=== PATIENT | female | born 1970 | race Two or more races ===

== ENCOUNTER 2017-08-12 09:53 | Inpatient (IN) | payer OTHER ==
[2017-08-12 10:28] VITALS: BMI 19.2
--- NOTE | 2017-08-12 13:11 | HP ---
CIWA Score - CIWA Score Nausea/Vomitin-No Nausea/No Vomiting Muscle Tremors: 4-Moderate,w/Arms Extend Anxiety: 4-Mod. Anxious/Guarded Agitation: 4-Moderately Restless Paroxysmal Sweats: 3 Orientation: 0-Oriented Tacttile Disturbances: 0-None Auditory Disturbances: 0-None Visual Disturbances: 1-Very Mild Sensitivity Headache: 1-Very Mild CIWA-Ar Total Score: 17 Admission ROS [facility] - HPI Chief Complaint: I am here to get off the xanax. Allergies/Adverse Reactions: Allergies Allergy/AdvReac Type Severity Reaction Status Date / Time No Known Allergies Allergy Verified 08/12/17 13:01 History of Present Illness: pt is a 47yr old female with a history of benzodiazapine dependence seeking detox for treatment. Exam Limitations: No Limitations - Ebola screening Have you traveled outside of the country in the last 21 days: No Have you had contact with anyone from an Ebola affected area: No Have you been sick,other than usual withdrawal symptoms: No Do you have a fever: No - Review of Systems Constitutional: Chills, Diaphoresis, Loss of Appetite, Night Sweats, Changes in sleep, Unintentional Wgt. Loss EENT: reports: Tearing, Nose Congestion Respiratory: reports: No Symptoms reported Cardiac: reports: No Symptoms Reported GI: reports: Poor Appetite, Poor Fluid Intake : reports: No Symptoms Reported Musculoskeletal: reports: No Symptoms Reported Integumentary: reports: Flushing Neuro: reports: Tingling, Tremors Endocrine: reports: Excessive Sweating, Flushing, Intolerance to Cold, Intolerance to Heat Hematology: reports: No Symptoms Reported Psychiatric: reports: Judgement Intact, Mood/Affect Appropiate, Orientated x3, Agitated, Anxious Other Systems: Reviewed and Negative Patient History - Patient Medical History Hx Anemia: No Hx Asthma: No Hx Chronic Obstructive Pulmonary Disease (COPD): Yes Hx Cancer: No Hx Cardiac Disorders: No Hx Congestive Heart Failure: No Hx Hypertension: Yes Hx Hypercholesterolemia: No Hx Pacemaker: No HX Cerebrovascular Accident: No Hx Seizures: No Hx Dementia: No Hx Diabetes: No Hx Gastrointestinal Disorders: No Hx Liver Disease: No Hx Genitourinary Disorders: No Hx Sexually Transmitted Disorders: No Hx Renal Disease (ESRD): No Hx Thyroid Disease: No Hx Human Immunodeficiency Virus (HIV): No (negative) Hx Hepatitis C: No (negative) Hx Depression: Yes Hx Suicide Attempt: No Hx Bipolar Disorder: No Hx Schizophrenia: No Other Medical History: anxiety - Patient Surgical History Past Surgical History: No - PPD History Previous Implant?: Yes Documented Results: Negative w/o proof Implanted On Prior [facility] Admission?: No PPD to be Administered?: Yes - Reproductive History Last Menstrual Period: 07/21/17 Patient : No - Smoking Cessation Smoking history: Current every day smoker Have you smoked in the past 12 months: Yes Aproximately how many cigarettes per day: 30 Hx Chewing Tobacco Use: No Initiated information on smoking cessation: Yes 'Breaking Loose' booklet given: 08/12/17 - Substance & Tx. History Hx Alcohol Use: No Hx Substance Use: Yes Substance Use Type: Tranquilizers Hx Substance Use Treatment: No - Substances Abused Alprazolam (Xanax) Route: Oral Frequency: Daily Amount used: 4-5mg Age of first use: 47 Date of Last Use: 08/12/17 Family Disease History - Family Disease History Family Disease History: Diabetes: Mother, Brother, Other: Father ( dementia 09/2016) Admission Physical Exam S - Vital Signs Vital Signs: Vital Signs - 24 hr 08/12/17 10:25 Temperature 97.3 F L Pulse Rate 80 Respiratory 18 Rate Blood Pressure 106/75 - Physical General Appearance: Yes: Appropriately Dressed, Thin, Tremorous, Irritable, Sweating, Anxious HEENTM: Yes: Hearing grossly Normal, Normal Voice, Nasal Congestion, Rhinorrhea Respiratory: Yes: Lungs Clear, Normal Breath Sounds, No Respiratory Distress Neck: Yes: No masses,lesions,Nodules Breast: Yes: Within Normal Limits, Axillae without masses, No masses Cardiology: Yes: Regular Rhythm, Regular Rate, S1, S2 Abdominal: Yes: Normal Bowel Sounds, Non Tender, Soft Genitourinary: Yes: Within Normal Limits Back: Yes: Normal Inspection Musculoskeletal: Yes: full range of Motion, Gait Steady Extremities: Yes: Normal Capillary Refill, Normal Inspection, Non-Tender, Tremors Neurological: Yes: Fully Oriented, Alert, Normal Response Integumentary: Yes: Normal Color, Diaphoresis Lymphatic: Yes: Within Normal Limits - Diagnostic (1) Sedative, hypnotic or anxiolytic dependence with withdrawal, uncomplicated Current Visit: Yes Status: Chronic (2) Nicotine dependence Current Visit: Yes Status: Chronic Qualifiers: Nicotine product type: cigarettes Substance use status: uncomplicated Qualified Code(s): F17.210 - Nicotine dependence, cigarettes, uncomplicated (3) Hypertension Current Visit: Yes Status: Chronic Qualifiers: Hypertension type: essential hypertension Qualified Code(s): I10 - Essential (primary) hypertension (4) Dystonia Current Visit: Yes Status: Chronic (5) COPD (chronic obstructive pulmonary disease) Current Visit: Yes Status: Chronic Qualifiers: Emphysema type: unspecified Cleared for Admission BHS - Detox or Rehab S Level of Care: Medically Managed Detox Regimen/Protocol: Valium S Breath Alcohol Content Breath Alcohol Content: 0 Urine Pregancy Test - Result Urine Test Results: Negative- NO Line Present Urine Drug Screen - Results Drug Screen Negative: No Urine Drug Screen Results: BZO-Benzodiazepines
[2017-08-12] MEDS ORDERED: MAG HYDROX/AL HYDROX/SIMETH 30 ML UNIT-DOSE CUP PO PRN (13:14)
[2017-08-12] MEDS ORDERED: MENTHOL/PHENOL 1 EACH UD MM PRN (13:14)
[2017-08-12] MEDS ORDERED: ACETAMINOPHEN 325 MG TABLET (FP) PO PRN (13:14)
[2017-08-12] MEDS ORDERED: MAGNESIUM HYDROX 2400MG/30ML ORAL SUSPENSION 30 ML CUP PO PRN (13:14)
[2017-08-12] MEDS ORDERED: guaiFENesin/D-METHORPHAN HB 10 ML UNIT-DOSE CUPS PO PRN (13:14)
[2017-08-12] MEDS ORDERED: LOPERAMIDE HCL 2 MG CAPSULE PO PRN (13:14)
[2017-08-12] MEDS ORDERED: IBUPROFEN 400 MG TABLET (FP) PO PRN (13:14)
[2017-08-12] MEDS ORDERED: MAGNESIUM CITRATE 300 ML BOTTLE PO PRN (13:14)
[2017-08-12] MEDS ORDERED: diazePAM 5 MG TABLET PO ONE (13:34)
[2017-08-12] MEDS: diazePAM 5 MG TABLET PO SCH ×2 (14:32→22:20)
--- NOTE | 2017-08-12 15:23 | CONSULT ---
[facility] Psychiatric Consult - Data Date of interview: 08/12/17 Admission source: [facility] Identifying data: This is 47 years old female with no psychiatric hospitalization history intoxicated with: Xanax and Nicotine Substance Abuse History: Smoking Cessation. Smoking history: Current every day smoker. Have you smoked in the past 12 months: Yes. Aproximately how many cigarettes per day: 30. Hx Chewing Tobacco Use: No. Initiated information on smoking cessation: Yes. 'Breaking Loose' booklet given: 08/12/17. - Substance & Tx. History. Hx Alcohol Use: No. Hx Substance Use: Yes. Substance Use Type : Tranquilizers. Hx Substance Use Treatment: No. - Substances Abused. Alprazolam (Xanax). Route: Oral. Frequency: Daily. Amount used: 4-5mg. Age of first use: 47. Date of Last Use: 08/12/17 Medical History: HTN, COPD Psychiatric History: Patient reports anxiety and panic attachs, reports takijgn prior to admission: Remeron 15mg po qhs. Trazodone 150mg pom qhs. Seroquel 100mg po qhs Physical/Sexual Abuse/Trauma History: Unclear Additional Comment: Remeron 15mg po qhs. Trazodone 150mg pom qhs. Seroquel 100mg po qhs Mental Status Exam - Mental Status Exam Alert and Oriented to: Person Cognitive Function: Fair Patient Appearance: Unkempt Mood: Anxious Affect: Mood Congruent Patient Behavior: Cooperative Speech Pattern: Excessive Voice Loudness: Mildly Loud Thought Process: Circumstantial, Goal Oriented Thought Disorder: Being Controlled Hallucinations: Denies Suicidal Ideation: Denies Homicidal Ideation: Denies Insight/Judgement: Fair Sleep: Difficulty falling asleep Appetite: Weight loss Muscle strength/Tone: Mild Hypotonicity Gait/Station: Normal Additional Comments: Remeron 15mg po qhs. Trazodone 150mg pom qhs. Seroquel 100mg po qhs Psychiatric Findings - Problem List ([place] 1, 2,3) (1) Drug-induced mood disorder Current Visit: Yes Status: Acute (2) Nicotine dependence Current Visit: Yes Status: Chronic Qualifiers: Nicotine product type: cigarettes Substance use status: uncomplicated Qualified Code(s): F17.210 - Nicotine dependence, cigarettes, uncomplicated (3) Sedative, hypnotic or anxiolytic dependence with withdrawal, uncomplicated Current Visit: Yes Status: Chronic - Initial Treatment Plan Initial Treatment Plan: Remeron 15mg po qhs. Trazodone 150mg pom qhs. Seroquel 100mg po qhs
[2017-08-12] MEDS: P-EPHED 60MG/TRIPROLIDI 2.5MG TABLET PO PRN (16:35)
[2017-08-12] MEDS: hydrOXYzine PAMOATE 50 MG CAPSULE (FP) PO PRN (16:35)
[2017-08-12] MEDS: NICOTINE POLACRILEX 4 MG GUM BUC PRN (18:16)
[2017-08-12] MEDS: diazePAM 5 MG TABLET PO PRN (18:34)
[2017-08-12] MEDS: MIRTAZAPINE 15 MG TABLET (FP) PO SCH (22:19)
[2017-08-12] MEDS: traZODone HCL 50 MG TABLET (FP) PO SCH (22:19)
[2017-08-12] MEDS: THIAMINE HCL 100 MG TABLET (FP) PO SCH (22:19)
[2017-08-12] MEDS: QUEtiapine FUMARATE 100 MG TABLET (FP) PO SCH (22:19)
[2017-08-12] MEDS: PROPRANOLOL HCL 10 MG TABLET (FP) PO SCH (22:20)
[2017-08-12] MEDS: BACLOFEN 10 MG TABLET (FP) PO SCH (22:20)
[2017-08-12 23:32] LABS: URINE APPEARANCE CLEAR; URINE BILIRUBIN NEGATIVE (NEGATIVE); URINE BLOOD NEGATIVE (NEGATIVE); URINE COLOR STRAW; URINE GLUCOSE (UA) NEGATIVE (NEGATIVE); URINE KETONE NEGATIVE (NEGATIVE); URINE NITRITE NEGATIVE (NEGATIVE); URINE PROTEIN NEGATIVE (NEGATIVE); URINE UROBILINOGEN NEGATIVE mg/dL (0.2-1.0)
[2017-08-12 23:56] LABS: URINE LEUK ESTERASE 1+ (NEGATIVE)
[2017-08-13 00:17] LABS: EPI CELLS FEW /HPF (FEW); URINE BACTERIA MANY /hpf (NONE SEEN); URINE MUCUS FEW
[2017-08-13] MEDS: diazePAM 5 MG TABLET PO PRN ×3 (03:17→17:24)
[2017-08-13] MEDS: diazePAM 5 MG TABLET PO SCH ×3 (06:52→22:31)
[2017-08-13] MEDS: PROPRANOLOL HCL 10 MG TABLET (FP) PO SCH ×3 (06:53→22:32)
[2017-08-13 10:02] LABS: HEMATOCRIT 39.8 % (32.4-45.2); HEMOGLOBIN 12.6 GM/dL (10.7-15.3); MCH 27.9 pg (25.7-33.7); MCHC 31.8 g/dl (32.0-36.0); MEAN CELL VOLUME 87.7 fl (80-96); MEAN PLT VOLUME 9.8 fl (7.5-11.1); PLATELET COUNT 254 K/MM3 (134-434); RBC 4.53 M/mm3 (3.60-5.2); RDW 13.9 % (11.6-15.6); WHITE BLOOD COUNT 6.9 K/mm3 (4.0-10.0)
[2017-08-13 10:18] LABS: ALBUMIN 4.3 g/dl (3.4-5.0); ANION GAP 8 (8-16); BLOOD UREA NITROGEN 12 mg/dL (7-18); CALCIUM 9.5 mg/dL (8.5-10.1); CHLORIDE 102 mmol/L (98-107); CO2 29 mmol/L (21-32); GLUCOSE,RANDOM 96 mg/dL (74-106); POTASSIUM 4.3 mmol/L (3.5-5.1); SODIUM 139 mmol/L (136-145)
[2017-08-13 10:21] LABS: ALK PHOS 44 U/L (45-117); BILIRUBIN,TOTAL 0.3 mg/dL (0.2-1.0); CREATININE 0.7 mg/dL (0.55-1.02); SGOT/AST 16 U/L (15-37); SGPT/ALT 16 U/L (12-78); TOT PROT 7.4 g/dl (6.4-8.2)
[2017-08-13] MEDS: P-EPHED 60MG/TRIPROLIDI 2.5MG TABLET PO PRN (10:53)
[2017-08-13] MEDS: NICOTINE 21 MG/24 HOURS TOPICAL PATCH TD SCH (11:16)
[2017-08-13] MEDS: PRENATAL VITAMINS W/ FOLIC ACID TABLET (FP) PO SCH (11:16)
[2017-08-13] MEDS: hydrOXYzine PAMOATE 50 MG CAPSULE (FP) PO PRN ×2 (13:04→17:23)
--- NOTE | 2017-08-13 14:46 | PN ---
S CIWA - CIWA Score Nausea/Vomitin-No Nausea/No Vomiting Muscle Tremors: 4-Moderate,w/Arms Extend Anxiety: 4-Mod. Anxious/Guarded Agitation: 4-Moderately Restless Paroxysmal Sweats: 3 Orientation: 0-Oriented Tacttile Disturbances: 0-None Auditory Disturbances: 0-None Visual Disturbances: 0-None Headache: 1-Very Mild CIWA-Ar Total Score: 16 BHS Progress Note (SOAP) Subjective: tearing sweats chills interrupted sleep irritable I need my fixodent for my dentures I brought in my own sealed powder fixodent. Objective: 08/13/17 14:43 Vital Signs Temperature 98.0 F 08/13/17 14:12 Pulse Rate 95 H 08/13/17 14:12 Respiratory Rate 16 08/13/17 14:12 Blood Pressure 99/67 08/13/17 14:12 O2 Sat by Pulse Oximetry (%) Laboratory Tests 08/12/17 08/12/17 08/13/17 12:00 21:00 05:45 WBC 6.9 RBC 4.53 Hgb 12.6 Hct 39.8 MCV 87.7 MCH 27.9 MCHC 31.8 L RDW 13.9 Plt Count 254 MPV 9.8 Sodium Potassium Chloride Carbon Dioxide Anion Gap BUN Creatinine Creat Clearance w eGFR Random Glucose Calcium Total Bilirubin AST ALT Alkaline Phosphatase Total Protein Albumin Urine Color Straw Urine Appearance Clear Urine pH 6.0 Ur Specific [place] 1.008 Urine Protein Negative Urine Glucose (UA) Negative Urine Ketones Negative Urine Blood Negative Urine Nitrite Negative Urine Bilirubin Negative Urine Urobilinogen Negative Ur Leukocyte Esterase 1+ H Urine WBC (Auto) 1 Urine RBC (Auto) 1 Ur Epithelial Cells Few Urine Bacteria Many Urine Mucus Few RPR Titer HIV 1&2 Antibody Screen Negative HIV P24 Antigen Negative 08/13/17 08/13/17 05:45 05:45 WBC RBC Hgb Hct MCV MCH MCHC RDW Plt Count MPV Sodium 139 Potassium 4.3 Chloride 102 Carbon Dioxide 29 Anion Gap 8 BUN 12 Creatinine 0.7 Creat Clearance w eGFR > 60 Random Glucose 96 Calcium 9.5 Total Bilirubin 0.3 AST 16 ALT 16 Alkaline Phosphatase 44 L Total Protein 7.4 Albumin 4.3 Urine Color Urine Appearance Urine pH Ur Specific [place] Urine Protein Urine Glucose (UA) Urine Ketones Urine Blood Urine Nitrite Urine Bilirubin Urine Urobilinogen Ur Leukocyte Esterase Urine WBC (Auto) Urine RBC (Auto) Ur Epithelial Cells Urine Bacteria Urine Mucus RPR Titer Nonreactive HIV 1&2 Antibody Screen HIV P24 Antigen aaox3 ambulating no acute distress ordered for pt to use her own fixodent (powder form to mix with water) for her dentures. pt will need to ask her nurse to receive her fixodent twice a day. Assessment: 08/13/17 14:45 withdrawal sx Plan: continue detox increase fluids
[2017-08-13] MEDS: MIRTAZAPINE 15 MG TABLET (FP) PO SCH (22:31)
[2017-08-13] MEDS: THIAMINE HCL 100 MG TABLET (FP) PO SCH (22:31)
[2017-08-13] MEDS: QUEtiapine FUMARATE 100 MG TABLET (FP) PO SCH (22:31)
[2017-08-13] MEDS: traZODone HCL 50 MG TABLET (FP) PO SCH (22:31)
[2017-08-13] MEDS: BACLOFEN 10 MG TABLET (FP) PO SCH (22:32)
[2017-08-14] MEDS: hydrOXYzine PAMOATE 50 MG CAPSULE (FP) PO PRN ×2 (04:23→13:24)
[2017-08-14] MEDS: PROPRANOLOL HCL 10 MG TABLET (FP) PO SCH ×3 (07:32→22:50)
[2017-08-14] MEDS: diazePAM 5 MG TABLET PO PRN ×2 (07:33→17:58)
[2017-08-14] MEDS: PRENATAL VITAMINS W/ FOLIC ACID TABLET (FP) PO SCH (11:14)
[2017-08-14] MEDS: diazePAM 5 MG TABLET PO SCH ×2 (11:14→22:50)
[2017-08-14] MEDS: NICOTINE 21 MG/24 HOURS TOPICAL PATCH TD SCH (11:15)
--- NOTE | 2017-08-14 15:09 | PN ---
S CIWA - CIWA Score Nausea/Vomitin Muscle Tremors: 3 Anxiety: 3 Agitation: 4-Moderately Restless Paroxysmal Sweats: 3 Orientation: 0-Oriented Tacttile Disturbances: 0-None Auditory Disturbances: 0-None Visual Disturbances: 0-None Headache: 0-None Present CIWA-Ar Total Score: 16 S Progress Note (SOAP) Subjective: anxious interrupted sleep sweats Objective: 08/14/17 15:06 Vital Signs Temperature 98.6 F 08/14/17 14:19 Pulse Rate 86 08/14/17 14:19 Respiratory Rate 18 08/14/17 14:19 Blood Pressure 110/67 08/14/17 14:19 O2 Sat by Pulse Oximetry (%) Laboratory Last Values WBC 6.9 K/mm3 (4.0-10.0) 08/13/17 05:45 RBC 4.53 M/mm3 (3.60-5.2) 08/13/17 05:45 Hgb 12.6 GM/dL (10.7-15.3) 08/13/17 05:45 Hct 39.8 % (32.4-45.2) 08/13/17 05:45 MCV 87.7 fl (80-96) 08/13/17 05:45 MCH 27.9 pg (25.7-33.7) 08/13/17 05:45 MCHC 31.8 g/dl (32.0-36.0) L 08/13/17 05:45 RDW 13.9 % (11.6-15.6) 08/13/17 05:45 Plt Count 254 K/MM3 (134-434) 08/13/17 05:45 MPV 9.8 fl (7.5-11.1) 08/13/17 05:45 Sodium 139 mmol/L (136-145) 08/13/17 05:45 Potassium 4.3 mmol/L (3.5-5.1) 08/13/17 05:45 Chloride 102 mmol/L (98-107) 08/13/17 05:45 Carbon Dioxide 29 mmol/L (21-32) 08/13/17 05:45 Anion Gap 8 (8-16) 08/13/17 05:45 BUN 12 mg/dL (7-18) 08/13/17 05:45 Creatinine 0.7 mg/dL (0.55-1.02) 08/13/17 05:45 Creat Clearance w eGFR > 60 (>60) 08/13/17 05:45 Random Glucose 96 mg/dL (74-106) 08/13/17 05:45 Calcium 9.5 mg/dL (8.5-10.1) 08/13/17 05:45 Total Bilirubin 0.3 mg/dL (0.2-1.0) 08/13/17 05:45 AST 16 U/L (15-37) 08/13/17 05:45 ALT 16 U/L (12-78) 08/13/17 05:45 Alkaline Phosphatase 44 U/L (45-117) L 08/13/17 05:45 Total Protein 7.4 g/dl (6.4-8.2) 08/13/17 05:45 Albumin 4.3 g/dl (3.4-5.0) 08/13/17 05:45 Urine Color Straw 08/12/17 21:00 Urine Appearance Clear 08/12/17 21:00 Urine pH 6.0 (5.0-8.0) 08/12/17 21:00 Ur Specific [place] 1.008 (1.001-1.035) 08/12/17 21:00 Urine Protein Negative (NEGATIVE) 08/12/17 21:00 Urine Glucose (UA) Negative (NEGATIVE) 08/12/17 21:00 Urine Ketones Negative (NEGATIVE) 08/12/17 21:00 Urine Blood Negative (NEGATIVE) 08/12/17 21:00 Urine Nitrite Negative (NEGATIVE) 08/12/17 21:00 Urine Bilirubin Negative (NEGATIVE) 08/12/17 21:00 Urine Urobilinogen Negative mg/dL (0.2-1.0) 08/12/17 21:00 Ur Leukocyte Esterase 1+ (NEGATIVE) H 08/12/17 21:00 Urine WBC (Auto) 1 /hpf (3-5) 08/12/17 21:00 Urine RBC (Auto) 1 /hpf (0-3) 08/12/17 21:00 Ur Epithelial Cells Few /HPF (FEW) 08/12/17 21:00 Urine Bacteria Many /hpf (NONE SEEN) 08/12/17 21:00 Urine Mucus Few 08/12/17 21:00 RPR Titer Nonreactive (NONREACTIVE) 08/13/17 05:45 HIV 1&2 Antibody Screen Negative 08/12/17 12:00 HIV P24 Antigen Negative 08/12/17 12:00 Assessment: 08/14/17 15:08 withdrawal sx Plan: continue detox
--- NOTE | 2017-08-14 17:12 | EKG ---
Test Reason : Blood Pressure : / mmHG Vent. Rate : 080 BPM Atrial Rate : 080 BPM P-R Int : 152 ms QRS Dur : 092 ms QT Int : 364 ms P-R-T Axes : 081 072 075 degrees QTc Int : 419 ms NORMAL SINUS RHYTHM NONSPECIFIC ST ABNORMALITY ABNORMAL ECG NO PREVIOUS ECGS AVAILABLE Confirmed by DANIELLE BOX MD ([id number]) on 08/14/2017 5:12:29 PM Referred By: Confirmed By:DANIELLE BOX MD
[2017-08-14] MEDS: traZODone HCL 50 MG TABLET (FP) PO SCH (22:49)
[2017-08-14] MEDS: QUEtiapine FUMARATE 100 MG TABLET (FP) PO SCH (22:50)
[2017-08-14] MEDS: BACLOFEN 10 MG TABLET (FP) PO SCH (22:50)
[2017-08-14] MEDS: MIRTAZAPINE 15 MG TABLET (FP) PO SCH (22:50)
[2017-08-14] MEDS: THIAMINE HCL 100 MG TABLET (FP) PO SCH (22:51)
[2017-08-14] MEDS: P-EPHED 60MG/TRIPROLIDI 2.5MG TABLET PO PRN (22:53)
[2017-08-15] MEDS: hydrOXYzine PAMOATE 50 MG CAPSULE (FP) PO PRN ×2 (04:32→16:53)
[2017-08-15] MEDS: PROPRANOLOL HCL 10 MG TABLET (FP) PO SCH ×3 (07:45→22:40)
[2017-08-15] MEDS: diazePAM 5 MG TABLET PO SCH ×2 (10:40→22:42)
[2017-08-15] MEDS: PRENATAL VITAMINS W/ FOLIC ACID TABLET (FP) PO SCH (10:40)
[2017-08-15] MEDS: NICOTINE 21 MG/24 HOURS TOPICAL PATCH TD SCH (10:40)
[2017-08-15] MEDS: IBUPROFEN 400 MG TABLET (FP) PO PRN ×2 (10:41→22:41)
--- NOTE | 2017-08-15 10:49 | PN ---
BHS Progress Note (SOAP) Subjective: tremor sweating sleep disturbance Objective: 08/15/17 10:49 Vital Signs Temperature 97.1 F L 08/15/17 06:44 Pulse Rate 81 08/15/17 06:44 Respiratory Rate 16 08/15/17 06:44 Blood Pressure 103/68 08/15/17 06:44 O2 Sat by Pulse Oximetry (%) Laboratory Last Values WBC 6.9 K/mm3 (4.0-10.0) 08/13/17 05:45 RBC 4.53 M/mm3 (3.60-5.2) 08/13/17 05:45 Hgb 12.6 GM/dL (10.7-15.3) 08/13/17 05:45 Hct 39.8 % (32.4-45.2) 08/13/17 05:45 MCV 87.7 fl (80-96) 08/13/17 05:45 MCH 27.9 pg (25.7-33.7) 08/13/17 05:45 MCHC 31.8 g/dl (32.0-36.0) L 08/13/17 05:45 RDW 13.9 % (11.6-15.6) 08/13/17 05:45 Plt Count 254 K/MM3 (134-434) 08/13/17 05:45 MPV 9.8 fl (7.5-11.1) 08/13/17 05:45 Sodium 139 mmol/L (136-145) 08/13/17 05:45 Potassium 4.3 mmol/L (3.5-5.1) 08/13/17 05:45 Chloride 102 mmol/L (98-107) 08/13/17 05:45 Carbon Dioxide 29 mmol/L (21-32) 08/13/17 05:45 Anion Gap 8 (8-16) 08/13/17 05:45 BUN 12 mg/dL (7-18) 08/13/17 05:45 Creatinine 0.7 mg/dL (0.55-1.02) 08/13/17 05:45 Creat Clearance w eGFR > 60 (>60) 08/13/17 05:45 Random Glucose 96 mg/dL (74-106) 08/13/17 05:45 Calcium 9.5 mg/dL (8.5-10.1) 08/13/17 05:45 Total Bilirubin 0.3 mg/dL (0.2-1.0) 08/13/17 05:45 AST 16 U/L (15-37) 08/13/17 05:45 ALT 16 U/L (12-78) 08/13/17 05:45 Alkaline Phosphatase 44 U/L (45-117) L 08/13/17 05:45 Total Protein 7.4 g/dl (6.4-8.2) 08/13/17 05:45 Albumin 4.3 g/dl (3.4-5.0) 08/13/17 05:45 Urine Color Straw 08/12/17 21:00 Urine Appearance Clear 08/12/17 21:00 Urine pH 6.0 (5.0-8.0) 08/12/17 21:00 Ur Specific [place] 1.008 (1.001-1.035) 08/12/17 21:00 Urine Protein Negative (NEGATIVE) 08/12/17 21:00 Urine Glucose (UA) Negative (NEGATIVE) 08/12/17 21:00 Urine Ketones Negative (NEGATIVE) 08/12/17 21:00 Urine Blood Negative (NEGATIVE) 08/12/17 21:00 Urine Nitrite Negative (NEGATIVE) 08/12/17 21:00 Urine Bilirubin Negative (NEGATIVE) 08/12/17 21:00 Urine Urobilinogen Negative mg/dL (0.2-1.0) 08/12/17 21:00 Ur Leukocyte Esterase 1+ (NEGATIVE) H 08/12/17 21:00 Urine WBC (Auto) 1 /hpf (3-5) 08/12/17 21:00 Urine RBC (Auto) 1 /hpf (0-3) 08/12/17 21:00 Ur Epithelial Cells Few /HPF (FEW) 08/12/17 21:00 Urine Bacteria Many /hpf (NONE SEEN) 08/12/17 21:00 Urine Mucus Few 08/12/17 21:00 RPR Titer Nonreactive (NONREACTIVE) 08/13/17 05:45 HIV 1&2 Antibody Screen Negative 08/12/17 12:00 HIV P24 Antigen Negative 08/12/17 12:00 lab noted Assessment: 08/15/17 10:49 mild withdrawal sx Plan: continue detox
[2017-08-15] MEDS: NICOTINE POLACRILEX 4 MG GUM BUC PRN (13:10)
[2017-08-15] MEDS: traZODone HCL 50 MG TABLET (FP) PO SCH (22:40)
[2017-08-15] MEDS: BACLOFEN 10 MG TABLET (FP) PO SCH (22:40)
[2017-08-15] MEDS: QUEtiapine FUMARATE 100 MG TABLET (FP) PO SCH (22:41)
[2017-08-15] MEDS: MIRTAZAPINE 15 MG TABLET (FP) PO SCH (22:41)
[2017-08-15] MEDS: THIAMINE HCL 100 MG TABLET (FP) PO SCH (22:42)
[2017-08-15] MEDS: P-EPHED 60MG/TRIPROLIDI 2.5MG TABLET PO PRN (22:42)
[2017-08-16 06:47] VITALS: BP 108/68; PULSE 79; TEMP 96.3
[2017-08-16] MEDS: PROPRANOLOL HCL 10 MG TABLET (FP) PO SCH (07:37)
[2017-08-16] MEDS: PRENATAL VITAMINS W/ FOLIC ACID TABLET (FP) PO SCH (09:09)
--- NOTE | 2017-08-16 09:23 | DS ---
[facility] Detox Discharge Summary Admission Date: 08/12/17 Discharge Date: 08/16/17 - History Present History: Sedative Dependence Pertinent Past History: HYPERTENSION COPD DYSTONIA HISTORY DRUG INDUCED MOOD DISORDER - Physical Exam Results Vital Signs: Vital Signs Temperature 96.3 F L 08/16/17 06:00 Pulse Rate 79 08/16/17 06:00 Respiratory Rate 16 08/16/17 06:00 Blood Pressure 108/68 08/16/17 06:00 O2 Sat by Pulse Oximetry (%) Pertinent Admission Physical Exam Findings: WITHDRAWAL SIGNS AND SYMPTOM Vital Signs Temperature 96.3 F L 08/16/17 06:00 Pulse Rate 79 08/16/17 06:00 Respiratory Rate 16 08/16/17 06:00 Blood Pressure 108/68 08/16/17 06:00 O2 Sat by Pulse Oximetry (%) - Treatment Hospital Course: Detox Protocol Followed, Detoxed Safely, Responded well, Discharged Condition Good Patient has Accepted a Rehab Referral to: [facility]CL[facility] - Medication Discharge Medications: Ambulatory Orders Baclofen 30 mg PO HS 08/12/17 Mirtazapine [Remeron -] 15 mg PO HS #30 tablet 08/12/17 Propranolol HCl 10 mg PO TID 08/12/17 Quetiapine Fumarate [Seroquel] 100 mg PO HS #30 tablet 08/12/17 Trazodone HCl [Desyrel -] 150 mg PO HS #30 tablet 08/12/17 - Diagnosis (1) Drug-induced mood disorder Current Visit: Yes Status: Acute (2) COPD (chronic obstructive pulmonary disease) Current Visit: Yes Status: Chronic Qualifiers: Emphysema type: unspecified (3) Dystonia Current Visit: Yes Status: Chronic (4) Hypertension Current Visit: Yes Status: Chronic Qualifiers: Hypertension type: essential hypertension Qualified Code(s): I10 - Essential (primary) hypertension (5) Nicotine dependence Current Visit: Yes Status: Chronic Qualifiers: Nicotine product type: cigarettes Substance use status: uncomplicated Qualified Code(s): F17.210 - Nicotine dependence, cigarettes, uncomplicated (6) Sedative, hypnotic or anxiolytic dependence with withdrawal, uncomplicated Current Visit: Yes Status: Chronic
[2017-08-16] MEDS ORDERED: diazePAM 5 MG TABLET PO SCH (10:00)
== END 2017-08-16 09:43 | disposition home or self-care (01) | DRG 897 ==
LOC: EDBD → YASAS 09:53 → Y6N 12:17
PROVIDERS: ADMIT Internal Medicine; ATTEND Internal Medicine
PROC: HZ2ZZZZ Detoxification Services for Substance Abuse Treatment (ICD-10-PCS; principal; 2017-08-12)
DX: F13.230 Sedative, hypnotic or anxiolytic dependence with withdrawal, uncomplicated (principal); G24.8 Other dystonia; F17.210 Nicotine dependence, cigarettes, uncomplicated; F19.24 Other psychoactive substance dependence with psychoactive substance-induced mood disorder; J44.9 Chronic obstructive pulmonary disease, unspecified; I10 Essential (primary) hypertension
CPT/HCPCS: 36415; 80053; 81003; 81015; 85027; 86593; 87389; 93005; 93010; J0475